=== PATIENT | female | born 1985 | race Caucasian/White ===

== ENCOUNTER 2017-06-14 11:34 | Emergency (ER) | payer MEDICAID ==
--- NOTE | 2017-06-14 12:11 | ED Physician Chart ---
Chief Complaint/HPI - Patient Information Date Seen:: 06/14/17 Time Seen:: 12:00 Chief Complaint:: vomiting History of Present Illness:: Patient developed vomiting this morning. She has vomited 4 times. No diarrhea no fever she has left upper quadrant and right upper quadrant pain. The last one year patient has had a left upper quadrant bulge which often occurs when she stands up and leans forward. This left upper quadrant bulge is not worse today than usual. Allergies:: Allergies Allergy/AdvReac Type Severity Reaction Status Date / Time sulfamethoxazole Allergy Verified 06/14/17 11:40 [From Bactrim] trimethoprim [From Bactrim] Allergy Verified 06/14/17 11:40 motrin Allergy Unknown Uncoded 08/18/12 13:01 Vitals:: Vital Signs - 8 hr 06/14/17 11:41 Temp 97.6 F HR 80 RR 16 BP 121/80 O2 Sat % 99 Historian:: Patient Review:: Nurse's Note Reviewed Review of Systems - Review of Systems General/Constitutional: No fever, No chills Skin: No skin lesions Head: No headache Eyes: No loss of vision ENT: No earache Neck: No neck pain Cardio Vascular: No chest pain, No palpitations Pulmonary: No SOB GI: Nausea, Vomiting, Pain G/U: No dysuria, No hematuria, No nacturia Musculoskeletal: No bone or joint pain, No back pain Endocrine: No polyuria, No polydipsia Psychiatric: No prior psych history Hematopoietic: No bruising Allergic/Immuno: No urticaria Neurological: No syncope Labs/Radiology/EKG Results - Lab Results Results: Laboratory Results - last 24 hr 06/14/17 06/14/17 06/14/17 12:00 12:00 12:18 WBC 8.8 RBC 5.19 H Hgb 13.7 Hct 41.5 MCV 80.0 L MCH 26.4 L MCHC Differential 33.0 RDW 12.8 Plt Count 380 MPV 7.5 Neutrophils % 45.5 Lymphocytes % 47.0 Monocytes % 6.0 Eosinophils % 1.0 Basophils % 0.5 Sodium Potassium Chloride Carbon Dioxide Anion Gap BUN Creatinine Est GFR ( Amer) Est GFR (Non-Af Amer) BUN/Creatinine Ratio Glucose Calcium Magnesium Lipase Urine Source [place] Urine Color YELLOW Urine Clarity CL Urine pH 7.0 Ur Specific [place] 1.020 Urine Protein NEGATIVE Urine Glucose (UA) NEGATIVE Urine Ketones NEGATIVE Urine Blood NEGATIVE Urine Nitrate NEGATIVE Urine Bilirubin NEGATIVE Urine Urobilinogen 0.2 Ur Leukocyte Esterase NEGATIVE Urine RBC NONE SEEN Urine WBC NONE SEEN Ur Epithelial Cells FEW Amorphous Sediment FEW PHOSPHATES Urine Bacteria OCCASIONAL Urine Test NEGATIVE 06/14/17 12:18 WBC RBC Hgb Hct MCV MCH MCHC Differential RDW Plt Count MPV Neutrophils % Lymphocytes % Monocytes % Eosinophils % Basophils % Sodium 135 L Potassium 4.0 Chloride 106 Carbon Dioxide 23.9 Anion Gap 9.1 BUN 12 Creatinine 0.8 Est GFR ( Amer) > 60.0 Est GFR (Non-Af Amer) > 60.0 BUN/Creatinine Ratio 15.0 Glucose 111 H Calcium 10.0 Magnesium 2.1 Lipase 16 Urine Source Urine Color Urine Clarity Urine pH Ur Specific [place] Urine Protein Urine Glucose (UA) Urine Ketones Urine Blood Urine Nitrate Urine Bilirubin Urine Urobilinogen Ur Leukocyte Esterase Urine RBC Urine WBC Ur Epithelial Cells Amorphous Sediment Urine Bacteria Urine Test Assessment - Assessment General Assessment: At 1400 patient felt better. I had patient stand and lean. forward and no ventral hernia was palpable and patient agreed it was not sticking out when reexamined. Told her she should follow-up with a general surgeon for evaluation of a possible ventral hernia ED Septic Shock - . Is Septic Shock (SBP<90, OR Lactate>4 mmol\L) present?: No - <6hrs of presentation: Vital Signs: Vital Signs - 8 hr 06/14/17 11:41 Temp 97.6 F HR 80 RR 16 BP 121/80 O2 Sat % 99 Reassessment (Disposition) - Reassessment Reassessment:: Patient told to drink a lot of half Gatorade half water and then bananas, get back to regular diet as soon as possible, and when better drink extra orange juice. Reassessment Condition:: Improved - Diagnosis Diagnosis:: Acute viral syndrome with vomiting - Aftercare/Follow up Instructions Aftercare/Follow-Up Instructions:: Refer to Discharge Instructions Medication Prescribed:: Prescription for Zofran 4 mg oral dissolving tablet #6 to take one every 4-6 hours as necessary for nausea and vomiting - Patient Disposition Discharge/Transfer:: Home Condition at Disposition:: Stable, Improved
[2017-06-14] MEDS ORDERED: Sodium Chloride 0.9% 1,000 ML IV ONE (12:13)
[2017-06-14 12:29] LABS: % BASOPHILS 0.5 % (0.0-2.0); % NEUTROPHILS 45.5 % (40.0-80.0); HEMATOCRIT 41.5 % (35.0-45.0); HEMOGLOBIN 13.7 gm/dL (11.7-15.5); MEAN CORPUSCULAR HEMOGLOBIN 26.4 pg (27.0-31.0); MEAN PLATELET VOLUME 7.5 fl; PLATELET COUNT 380 Th/cmm (150-400); RED BLOOD COUNT 5.19 Mil/cmm (3.80-5.10); RED CELL DISTRIBUTION WIDTH 12.8 % (11.5-20.0); WHITE BLOOD COUNT 8.8 Th/cmm (4.8-10.8)
[2017-06-14 12:57] LABS: ANION GAP 9.1 (7.0-16.0); BUN - UREA NITROGEN 12 mg/dL (7-25); CARBON DIOXIDE 23.9 mEq/L (21.0-31.0); CHLORIDE 106 mEq/L (98-107); CREATININE - SERUM 0.8 mg/dL (0.6-1.2); GLUCOSE 111 mg/dL (70-105); LIPASE 16 U/L (11-82); MAGNESIUM 2.1 mg/dL (1.9-2.7); SODIUM SERUM 135 mEq/L (136-145)
[2017-06-14 13:01] LABS: URINE BILIRUBIN NEGATIVE (NEGATIVE); URINE COLOR YELLOW; URINE GLUCOSE (UA) NEGATIVE (NEGATIVE); URINE KETONE NEGATIVE (NEGATIVE)
[2017-06-14 13:02] LABS: URINE BLOOD NEGATIVE (NEGATIVE); URINE PROTEIN NEGATIVE (NEGATIVE); URINE UROBILINOGEN 0.2 E.U./dL (0.2 - 1.0)
[2017-06-14 13:04] LABS: URINE BACTERIA OCCASIONAL /hpf (NONE SEEN); URINE EPITHELIAL CELLS FEW /lpf (FEW); URINE RBC NONE SEEN /hpf (0-5); URINE WBC NONE SEEN /hpf (0-5)
[2017-06-14 13:05] LABS: URINE AMORPHOUS SEDIMENT FEW PHOSPHATES (NONE SEEN)
== END 2017-06-14 14:20 | disposition home or self-care (01) ==
LOC: ER 11:34
DX: B34.9 Viral infection, unspecified (principal)
CPT/HCPCS: 99284; 96374; 36415; 85025; 81001; 81025; 83690; 83735; 80048; J2405; J7030; Z7502

== ENCOUNTER 2018-08-20 17:10 | Inpatient (IN) | payer MEDICAID ==
[2018-08-20] MEDS ORDERED: Sodium Chloride 0.9% 1,000 ML IV ONE (17:14)
--- NOTE | 2018-08-20 17:15 | ED Physician Chart ---
ED Chief Complaint/HPI - Patient Information Date Seen:: 08/20/18 Time Seen:: 17:00 Chief Complaint:: Chest Pain History of Present Illness:: onset x 8 hours of intermittent, sharp, MS type right chest pain; pt admits to S /T, cough, fever, and congestion x 2 days; pt started on Amoxicillin today; pt denies trauma, LOC, ALOC, AMS, H/As, E/As, neck pain, SOB, Abd. Pain, A/N/V/D/C , chills, or urinary s/s Allergies:: Allergies Allergy/AdvReac Type Severity Reaction Status Date / Time sulfamethoxazole Allergy Verified 06/14/17 11:40 [From Bactrim] trimethoprim [From Bactrim] Allergy Verified 06/14/17 11:40 motrin Allergy Unknown Uncoded 08/18/12 13:01 Historian:: Patient Review:: Nurse's Note Reviewed <Marco Hernandez - Last Filed: 08/20/18 18:04> - Patient Information Allergies:: Allergies Allergy/AdvReac Type Severity Reaction Status Date / Time sulfamethoxazole Allergy Verified 06/14/17 11:40 [From Bactrim] trimethoprim [From Bactrim] Allergy Verified 06/14/17 11:40 motrin Allergy Unknown Uncoded 08/18/12 13:01 Vitals:: Vital Signs - 8 hr 08/20/18 08/20/18 17:41 18:22 Temp 98.4 F 98 F HR 85 80 RR 21 12 BP 125/76 117/69 O2 Sat % 99 100 <Filipe Walden - Last Filed: 08/20/18 20:42> ED Review of Systems - Review of Systems General/Constitutional: Fever, No chills, No weight loss, No weakness, No diaphoresis, No edema, No loss of appetite Skin: No skin lesions, No rash, No bruising Head: No headache, No light-headedness Eyes: No loss of vision, No pain, No diplopia ENT: No earache, Nasal drainage, Sore throat, No tinnitus Neck: No neck pain, No swelling, No thyromegaly, No stiffness, No mass noted Cardio Vascular: Chest pain, No palpitations, No PND, No orthopnea, No edema Pulmonary: No SOB, No cough, No sputum, No wheezing GI: No nausea, No vomiting, No diarrhea, No pain, No melena, No hematochezia, No constipation, No hematemesis G/U: No dysuria, No frequency, No hematuria Cherry Picker Operator: No vaginal discharge, No abnormal vaginal bleed, No contraction Musculoskeletal: No bone or joint pain, No back pain, No muscle pain Endocrine: No polyuria, No polydipsia Psychiatric: No prior psych history, No depression, No anxiety, No suicidal ideation, No homicidal ideation, No auditory hallucination, No visual hallucination Hematopoietic: No bruising, No lymphadenopathy Allergic/Immuno: No urticaria, No angioedema Neurological: No syncope, No focal symptoms, No weakness, No paresthesia, No headache, No seizure, No dizziness, No confusion, No vertigo <Marco Hernandez [facility] Filed: 08/20/18 18:04> ED Past Medical History - Past Medical History Obtainable: Yes Past Medical History: No significant medical hx Family History: HTN Social History: Non Smoker, No Alcohol, No Drug Use, Single Surgical History: None Psychiatricy History: None Medication: Reviewed <Marco Hernandez Filed: 08/20/18 18:04> Family Medical History - Family Member Mother Ethnicity: Living Status: Still Living Hx Family Cancer: No Hx Family Coronary Artery Disease: No Hx Family Congestive Heart Failure: No Hx Family Hypertension: No Hx Family Stroke: No Hx Family Diabetes: No Hx Family Seizures: No Hx Family Dementia: No Hx Family AIDS: No Hx Family HIV: No Hx Family COPD: No Hx Family Hepatitis: No Hx Family Psychiatric Problems: No Hx Family Tuberculosis: No <Marco Hernandez [facility] Filed: 08/20/18 18:04> ED Physical Exam - Physical Examination General/Constitutional: Awake, Well-developed, well-nourished, Alert, No distress, GCS 15, Non-toxic appearing, Ambulatory Head: Atraumatic Eyes: Lids, conjuctiva normal, PERRL, EOMI Skin: Nl inspection, No rash, No skin lesions, No ecchymosis, Well hydrated, No lymphadenopathy ENMT: External ears, nose nl, TM canals nl, Nasal exam nl, Lips, teeth, gums nl , Tonsils nl Other ENMT comments:: Pharynx: Injected Neck: Nontender, Full ROM w/o pain, No JVD, No nuchal rigidity, No bruit, No mass, No stridor Respiratory: Nl effort/Exclusion, Clear to Auscultation, No Wheeze/Rhonchi/Rales Cardio Vascular: RRR, No murmur, gallop, rubs, NL S1 S2, Carotid/Femoral/Distal pulses equal bilaterally GI: No tenderness/rebounding/guarding, No organomegaly, No hernia, Normal BS's, Nondistended, No mass/bruits, No McBurney tenderness : No CVA tenderness Extremities: No tenderness or effusion, Full ROM, normal strength in all extremities, No edema, Normal digits & nails Neuro/Psych: Alert/oriented, DTR's symmetric, Normal sensory exam, Normal motor strength, Judgement/insight normal, Mood normal, Normal gait, No focal deficits Misc: Normal back, No paraspinal tenderness <Marco Hernandez - Last Filed: 08/20/18 18:04> ED Labs/Radiology/EKG Results - Lab Results Comments:: Reviewed - EKG Interpretations EKG Time:: 17:18 Rate & Rhythm: 82; NSR Comments:: WNL <Marco Hernandez - Last Filed: 08/20/18 18:04> - Lab Results Results: Laboratory Tests 08/20/18 08/20/18 08/20/18 17:16 17:27 17:27 WBC 10.3 RBC 5.14 H Hgb 13.4 Hct 41.3 MCV 80.3 L MCH 26.0 L MCHC Differential 32.4 RDW 13.0 Plt Count 448 H MPV 6.9 Neutrophils % 56.0 Lymphocytes % 37.0 Monocytes % 4.0 Eosinophils % 2.2 Basophils % 0.8 PT 8.9 L INR 0.85 D-Dimer 3100 H Sodium 137 Potassium 2.3 L* Chloride 106 Carbon Dioxide 20.9 L Anion Gap 12.4 BUN 9 Creatinine 0.6 Est GFR ( Amer) > 60.0 Est GFR (Non-Af Amer) > 60.0 BUN/Creatinine Ratio 15.0 Glucose 91 Calcium 9.5 Total Bilirubin 0.3 AST 12 L ALT 13 Alkaline Phosphatase 62 Creatine Kinase 39 Troponin I B-Natriuretic Peptide Total Protein 7.7 Albumin 3.9 Globulin 3.8 Albumin/Globulin Ratio 1.0 Triglycerides 95 Cholesterol 169 LDL Cholesterol Direct 94 HDL Cholesterol 63 Amylase 52 Lipase 13 Serum , Qual 08/20/18 08/20/18 08/20/18 17:27 17:27 17:27 WBC RBC Hgb Hct MCV MCH MCHC Differential RDW Plt Count MPV Neutrophils % Lymphocytes % Monocytes % Eosinophils % Basophils % PT INR D-Dimer Sodium Potassium Chloride Carbon Dioxide Anion Gap BUN Creatinine Est GFR ( Amer) Est GFR (Non-Af Amer) BUN/Creatinine Ratio Glucose Calcium Total Bilirubin AST ALT Alkaline Phosphatase Creatine Kinase Troponin I < 0.01 L B-Natriuretic Peptide 60.9 Total Protein Albumin Globulin Albumin/Globulin Ratio Triglycerides Cholesterol LDL Cholesterol Direct HDL Cholesterol Amylase Lipase Serum , Qual NEGATIVE - Radiology Results Results: CTA chest: no evidence of PE <Filipe Walden - Last Filed: 08/20/18 20:42> ED Septic Shock - . Is Septic Shock (SBP<90, OR Lactate>4 mmol\L) present?: No <Marco Hernandez - Last Filed: 08/20/18 18:04> - . Is Septic Shock (SBP<90, OR Lactate>4 mmol\L) present?: No - <6hrs of presentation: Vital Signs: Vital Signs - 8 hr 08/20/18 08/20/18 17:41 18:22 Temp 98.4 F 98 F HR 85 80 RR 21 12 BP 125/76 117/69 O2 Sat % 99 100 <Filipe Walden - Last Filed: 08/20/18 20:42> ED Reassessment (Disposition) - Reassessment Reassessment Condition:: Improved - Diagnosis Diagnosis:: Chest Pain; Costochondritis; Pharyngitis; Hypokalemia <Marco Hernandez - Last Filed: 08/20/18 18:04> - Patient Disposition Discharge/Transfer:: Acute Care w/in this hosp Admitting Medical Physician:: Alexander Haji <Filipe Walden - Last Filed: 08/20/18 20:42>
[2018-08-20 17:38] LABS: % BASOPHILS 0.8 % (0.0-2.0); % EOSINOPHILS 2.2 % (0.0-5.0); BASOPHILE ABSOLUTE 0.1 Th/cumm (0-0.2); EOSINOPHILE ABSOLUTE 0.2 Th/cmm (0.1-0.4); HEMATOCRIT 41.3 % (41.0-60); HEMOGLOBIN 13.4 gm/dL (12-16); LYMPHOCYTE ABSOLUTE 3.8 Th/cmm (1.5-3.0); MEAN CELL VOLUME 80.3 fl (81-100); MEAN CORPUSCULAR HGB CONC 32.4 pg (28.0-36.0); MEAN PLATELET VOLUME 6.9 fl; MONOCYTE ABSOLUTE 0.4 Th/cmm (0.3-1.0); NEUTROPHILE ABSOLUTE 5.8 Th/cmm (1.8-8.0); PLATELET COUNT 448 Th/cmm (150-400); RED BLOOD COUNT 5.14 Mil/cmm (3.80-5.10); WHITE BLOOD COUNT 10.3 Th/cmm (4.8-10.8)
[2018-08-20 17:44] LABS: INR 0.85 (0.5-1.4); PROTHROMBIN TIME (TEST) 8.9 SECONDS (9.5-11.5)
[2018-08-20 17:52] LABS: ALBUMIN 3.9 gm/dL (3.7-5.3); ALKALINE PHOSPHATASE 62 U/L (34-104); AMYLASE SERUM 52 U/L (29-103); ANION GAP 12.4 (7.0-16.0); BILIRUBIN,TOTAL 0.3 mg/dL (0.3-1.0); BUN - UREA NITROGEN 9 mg/dL (7-25); CALCIUM SERUM 9.5 mg/dL (8.6-10.3); CARBON DIOXIDE 20.9 mEq/L (21.0-31.0); CHLORIDE 106 mEq/L (98-107); CHOLESTEROL 169 mg/dL (<200); CREATININE - SERUM 0.6 mg/dL (0.6-1.2); CREATININE KINASE 39 U/L (30-223); GFR AFRICAN-AMERICAN > 60.0 ml/min (>90); GFR NON AFRICAN-AMERICAN > 60.0 ml/min; GLUCOSE 91 mg/dL (70-105); HDL -HIGH DENSITY LIPOPROTEIN 63 mg/dL (23-92); LIPASE 13 U/L (11-82); SGOT 12 U/L (13-39); SGPT/ALT 13 U/L (7-52); SODIUM SERUM 137 mEq/L (136-145); TOTAL PROTEIN,SERUM 7.7 gm/dL (6.0-8.3); TRIGLYCERIDES 95 mg/dL (<150)
[2018-08-20 17:53] LABS: POTASSIUM SERUM 2.3 mEq/L (3.5-5.1)
[2018-08-20 18:03] LABS: DDIMER QUANT 3100 ng/mL (100-400)
[2018-08-20] MEDS ORDERED: Potassium Chloride 20 mEq ER Tab PO ONE ×2 (18:03→18:17)
[2018-08-20] MEDS ORDERED: IOHEXOL 350mgI/mL 100mL Bottle IVP ONE (19:16)
[2018-08-21 04:42] VITALS: BP 110/64
[2018-08-21 06:51] LABS: % BASOPHILS 0.1 % (0.0-2.0); % LYMPHOCYTES 43.6 % (20.0-50.0); % MONOCYTES 7.5 % (2.0-10.0); % NEUTROPHILS 45.8 % (40.0-80.0); EOSINOPHILE ABSOLUTE 0.2 Th/cmm (0.1-0.4); HEMOGLOBIN 12.3 gm/dL (12-16); LYMPHOCYTE ABSOLUTE 3.1 Th/cmm (1.5-3.0); MEAN CELL VOLUME 79.7 fl (81-100); MEAN CORPUSCULAR HEMOGLOBIN 26.6 pg (27.0-31.0); MEAN CORPUSCULAR HGB CONC 33.3 pg (28.0-36.0); MONOCYTE ABSOLUTE 0.5 Th/cmm (0.3-1.0); NEUTROPHILE ABSOLUTE 3.3 Th/cmm (1.8-8.0); PLATELET COUNT 405 Th/cmm (150-400); RED BLOOD COUNT 4.64 Mil/cmm (3.80-5.10); RED CELL DISTRIBUTION WIDTH 12.8 % (11.5-20.0); WHITE BLOOD COUNT 7.1 Th/cmm (4.8-10.8)
[2018-08-21] MEDS ORDERED: ETONOGESTREL 68 MG SQ SCH (08:15)
--- NOTE | 2018-08-21 09:02 | Diagnostic Imaging Report ---
CT Chest PE study Indication: Chest pain and elevated d-dimer Comparison: None, Technique: Axial images were obtained from the base of the neck to the upper abdomen, following administration of IV contrast, PE protocol. Multiplanar reconstructions were made. total DLP: 375, [id number] FINDINGS: No evidence of mediastinal adenopathy. Borderline prominent heart is noted. Assessment of the heart and proximal great vessels is limited due to pulsation artifact. No evidence of a pericardial effusion. No evidence of any aortic aneurysm. Assessment of the pulmonary arterial vasculature demonstrates no evidence of a pulmonary embolus. Evaluation of the lungs demonstrates minimal hypoventilatory atelectatic changes of the lungs. No focal consolidation or effusions. There is 3 mm nodular opacity the left lower lobe (image 52, series 6). The upper abdomen demonstrates no acute abnormalities. Degenerative changes of the spine are noted. IMPRESSION: No evidence of pulmonary embolus. No focal consolidation or pleural effusions. No evidence of an aortic aneurysm. Faint 3 mm nodule of the left lower lobe nonspecific and may be due to infectious or inflammatory process. Please correlate with old exams available. Consider follow surveillance if indicated.
[2018-08-21] MEDS: Calcium Carb/Vit D 500 mg/200 U Tab PO SCH ×2 (09:14→17:55)
--- NOTE | 2018-08-21 09:33 | History and Physical ---
History of Present Illness - HPI Chief Complaint: Hypokalemia HPI: 32 y/o female who presents to [facility] for sudden onset of intermittent, sharp, MS type right chest pain. Patient was seen by her PMD and prescribed amoxicillin for coughing, fever, congestion x 2 days. Was started on Amoxicillin. pt denies trauma, LOC, ALOC, AMS, H/As, E/As, neck pain, SOB, Abd. Pain, A/N/V/D/C, chills, or urinary s/s Initial labwork revealed the following ... WBC 10.3 H/h 13.4/41.3 platelets 448K Na 137 K+ 2.3 Bun/Cr 9/0.6 glu 91 amylase 52 lipase 13 serum HCG negative troponin I < 0.[address] Chest,Abd/Pelvis ... was negative. Patient was subsequently admitted for further evaluation and treatment. Vital Signs: Last Vital Signs Temp 96.9 F 08/21/18 08:00 Pulse 74 08/21/18 08:00 Resp 18 08/21/18 08:00 BP 100/60 08/21/18 08:00 Pulse Ox 100 08/21/18 08:00 Past Medical History Cardiovascular: Report: No Pertinent Hx Pulmonary: Report: No Pertinent Hx GRAB DRIVER: Report: No Pertinent Hx GI: Report: No Pertinent Hx Psych: Report: No Pertinent Hx Musculoskeletal: Report: No Pertinent Hx Rheumatologic: Report: No pertinent Hx Infectious Disease: Report: No Pertinent Hx Renal/: Report: No Pertinent Hx Endocrine: Report: No Pertinent Hx Dermatology: Report: No Pertinent Hx - Past Surgical History Past Surgical History: No pertinent Hx Family Medical History - Family Member Mother History Unknown: Yes Ethnicity: Living Status: Still Living Hx Family Cancer: No Hx Family Coronary Artery Disease: Yes Hx Family Congestive Heart Failure: No Hx Family Hypertension: Yes Hx Family Stroke: No Hx Family Diabetes: Yes Hx Family Seizures: No Hx Family Dementia: No Hx Family AIDS: No Hx Family HIV: No Hx Family COPD: No Hx Family Hepatitis: No Hx Family Psychiatric Problems: No Hx Family Tuberculosis: No Social History Smoke: No Alcohol: None Drugs: None Lives: Alone - Medications Home Medications: Home Medication Medication Instructions Recorded Type Amoxicillin [Amoxil] 500 mg PO TID 08/20/18 History Calcium Carbonate/Vitamin D3 1 tab PO BID 08/20/18 History [Calcium 600-Vit D3 400 Tablet] Etonogestrel [Nexplanon] 68 mg SQ X1 08/20/18 History Ondansetron HCl [Zofran*] 4 mg PO Q8H PRN 08/20/18 History - Allergies Allergies/Adverse Reactions: Allergies Allergy/AdvReac Type Severity Reaction Status Date / Time sulfamethoxazole Allergy Verified 06/14/17 11:40 [From Bactrim] trimethoprim [From Bactrim] Allergy Verified 06/14/17 11:40 motrin Allergy Unknown Uncoded 08/18/12 13:01 Review of Systems - Review of Systems Constitutional: Report: No Significant Eyes: Report: No Significant ENT: Report: No Significant Respiratory: Report: No Significant Cardiovascular: Report: No Significant Gastrointestinal: Report: Nausea, Vomiting, Abdominal Pain. Denies: Diarrhea Genitourinary: Report: No Significant Musculoskeletal: Report: No Significant Skin: Report: No Significant Neurological: Report: No Significant Physical Exam - Physical Exam HEENT: Report: Ears Nose Throat within normal limits, Pharnyx within normal limits Neck: Report: Within normal limits Cardiovascular Systems: Report: +s1/s2 noted, Regular, Rate and Rhythm Respiratory: Report: Breath Sounds are within normal limits Abdomen: Report: Non-tender to palpation, Tender to palpation Back: Report: Inspection of back is within normal limits. Extremities: Report: Non-tender to palpation. Skin: Report: Color of skin is within normal limits - Lab Results All Lab Results last 24 hours: Laboratory Results - last 24 hr 08/20/18 08/20/18 08/20/18 17:16 17:27 17:27 WBC 10.3 RBC 5.14 H Hgb 13.4 Hct 41.3 MCV 80.3 L MCH 26.0 L MCHC Differential 32.4 RDW 13.0 Plt Count 448 H MPV 6.9 Neutrophils % 56.0 Lymphocytes % 37.0 Monocytes % 4.0 Eosinophils % 2.2 Basophils % 0.8 PT 8.9 L INR 0.85 D-Dimer 3100 H Sodium 137 Potassium 2.3 L* Chloride 106 Carbon Dioxide 20.9 L Anion Gap 12.4 BUN 9 Creatinine 0.6 Est GFR ( Amer) > 60.0 Est GFR (Non-Af Amer) > 60.0 BUN/Creatinine Ratio 15.0 Glucose 91 Calcium 9.5 Total Bilirubin 0.3 AST 12 L ALT 13 Alkaline Phosphatase 62 Creatine Kinase 39 Troponin I B-Natriuretic Peptide Total Protein 7.7 Albumin 3.9 Globulin 3.8 Albumin/Globulin Ratio 1.0 Triglycerides 95 Cholesterol 169 LDL Cholesterol Direct 94 HDL Cholesterol 63 Amylase 52 Lipase 13 Serum , Qual 08/20/18 08/20/18 08/20/18 17:27 17:27 17:27 WBC RBC Hgb Hct MCV MCH MCHC Differential RDW Plt Count MPV Neutrophils % Lymphocytes % Monocytes % Eosinophils % Basophils % PT INR D-Dimer Sodium Potassium Chloride Carbon Dioxide Anion Gap BUN Creatinine Est GFR ( Amer) Est GFR (Non-Af Amer) BUN/Creatinine Ratio Glucose Calcium Total Bilirubin AST ALT Alkaline Phosphatase Creatine Kinase Troponin I < 0.01 L B-Natriuretic Peptide 60.9 Total Protein Albumin Globulin Albumin/Globulin Ratio Triglycerides Cholesterol LDL Cholesterol Direct HDL Cholesterol Amylase Lipase Serum , Qual NEGATIVE 08/21/18 08/21/18 06:30 06:30 WBC 7.1 D RBC 4.64 Hgb 12.3 Hct 37.0 L MCV 79.7 L MCH 26.6 L MCHC Differential 33.3 RDW 12.8 Plt Count 405 H MPV 7.0 Neutrophils % 45.8 Lymphocytes % 43.6 Monocytes % 7.5 Eosinophils % 3.0 Basophils % 0.1 PT INR D-Dimer Sodium Potassium Chloride Carbon Dioxide Anion Gap BUN Creatinine Est GFR ( Amer) Est GFR (Non-Af Amer) BUN/Creatinine Ratio Glucose Calcium Total Bilirubin AST ALT Alkaline Phosphatase Creatine Kinase Troponin I < 0.01 L B-Natriuretic Peptide Total Protein Albumin Globulin Albumin/Globulin Ratio Triglycerides Cholesterol LDL Cholesterol Direct HDL Cholesterol Amylase Lipase Serum , Qual - Assessment Assessment: Current Active Problems Problem Status Onset CHEST PAIN WITH THORACIC RADIATION Acute abdominal pain chest pain sever hypokalemia dehydration. - Plan Plan: see orders
[2018-08-21] MEDS ORDERED: Potassium Chloride 20 mEq ER Tab PO ONE (10:00)
[2018-08-21 10:27] LABS: AMPHETAMINE URINE NEGATIVE (NEGATIVE); BARBITURATES URINE NEGATIVE (NEGATIVE); BENZODIAZEPINES QUAL URINE NEGATIVE (NEGATIVE); CANNABINOID THC NEGATIVE (NEGATIVE); COCAINE METABOLITE QUAL URINE NEGATIVE (NEGATIVE); METHADONE URINE NEGATIVE (NEGATIVE); METHAMPHETAMINES QUAL URINE NEGATIVE (NEGATIVE); OPIATES (MORPHINE) QUAL. URINE NEGATIVE (NEGATIVE); PHENCYCLIDINE (PCP) URINE NEGATIVE (NEGATIVE); TRICYCLICS (TCA) QUAL. URINE NEGATIVE (NEGATIVE)
[2018-08-21] MEDS: KCL 20mEq/100mL Premix 20 MEQ/100 ML PIGGYBACK IV SCH ×2 (10:48→15:33)
[2018-08-21] MEDS ORDERED: Azithromycin 250 MG in Sodium Chloride 0.9% 250 ML IV SCH (12:00)
[2018-08-21] MEDS ORDERED: NS 0.9% IV SCH ×2 (12:15→17:00)
[2018-08-21] MEDS ORDERED: AZITHROMYCIN IV SCH ×2 (12:15→17:00)
[2018-08-21 14:15] LABS: ANION GAP 19.3 (7.0-16.0); BUN - UREA NITROGEN 6 mg/dL (7-25); CALCIUM SERUM 9.2 mg/dL (8.6-10.3); CHLORIDE 104 mEq/L (98-107); CREATININE - SERUM 0.7 mg/dL (0.6-1.2); GFR AFRICAN-AMERICAN > 60.0 ml/min (>90); GFR NON AFRICAN-AMERICAN > 60.0 ml/min; GLUCOSE 91 mg/dL (70-105); SODIUM SERUM 138 mEq/L (136-145)
[2018-08-21 14:16] LABS: ALB/GLOB RATIO 0.7 (1.0-1.8); ALBUMIN 2.9 gm/dL (3.7-5.3); ALKALINE PHOSPHATASE 66 U/L (34-104); BILIRUBIN,TOTAL 0.3 mg/dL (0.3-1.0); SGOT 14 U/L (13-39); SGPT/ALT 21 U/L (7-52); TOTAL PROTEIN,SERUM 7.2 gm/dL (6.0-8.3)
[2018-08-21 14:19] LABS: POTASSIUM SERUM 4.3 mEq/L (3.5-5.1)
--- NOTE | 2018-08-22 02:08 | Consultation ---
DATE OF CONSULTATION: 08/21/[address] Alexander Haji. HISTORY AND PHYSICAL: This is a 32-year-old female patient who has a sore throat. Following this, the patient came to the Emergency Room, the patient was also complaining of chest pain on the right, second and third intercostal space; increased with deep breathing, radiating to the back. The patient's troponin level normal. The patient had low potassium 2.3 and the patient is admitted. PAST MEDICAL HISTORY: Unremarkable. FAMILY HISTORY: Unremarkable. SOCIAL HISTORY: No history of smoking, alcohol abuse. ALLERGIES: None. PHYSICAL EXAMINATION: VITAL SIGNS: Blood pressure 130/80, pulse 70, respirations 20. HEAD: Normocephalic. No lumps or bumps. EYES: Pupils equal, reactive to light. Fundi show AV nicking, sclerae white, conjunctivae pink. NECK: Carotid 2+. Normal upstroke. JVD flat. Thyroid not palpable. Lymph nodes not palpable. CHEST: Shows increased AP diameter. No kyphosis, scoliosis. LUNGS: Bilateral bronchovesicular breath sounds. HEART: PMI fifth intercostal space with lateral to midclavicular line. S1, S2. No S3, S4, soft systolic murmur. ABDOMEN: Soft. Liver, spleen not palpable. No organomegaly. Bowel sounds active. NEUROLOGIC: Unremarkable. EXTREMITIES: Peripheral pulses 2+. No pedal edema. The patient has tenderness in the right second and third costochondral junction. CLINICAL IMPRESSION: Acute costochondritis. PLAN: The patient's troponin level normal. For hypokalemia, the patient to be given potassium supplement. We will get echocardiogram and monitor the patient on telemetry bed. JOB# [id number]
[2018-08-22 05:47] LABS: ANION GAP 14.4 (7.0-16.0); BUN - UREA NITROGEN 9 mg/dL (7-25); CALCIUM SERUM 9.8 mg/dL (8.6-10.3); CARBON DIOXIDE 21.7 mEq/L (21.0-31.0); CHLORIDE 105 mEq/L (98-107); CREATININE - SERUM 0.7 mg/dL (0.6-1.2); GFR AFRICAN-AMERICAN > 60.0 ml/min (>90); GFR NON AFRICAN-AMERICAN > 60.0 ml/min; GLUCOSE 128 mg/dL (70-105); POTASSIUM SERUM 4.1 mEq/L (3.5-5.1); SODIUM SERUM 137 mEq/L (136-145)
--- NOTE | 2018-08-22 08:30 | Diagnostic Imaging Report ---
Abdominal ultrasound HISTORY: Pain The liver appears enlarged. There is an increase in hepatic parenchymal echogenicity. The finding may be associated with fatty infiltration and should be correlated with liver function tests. No focal lesions. The gallbladder appears normal. No calculi are seen. No biliary dilatation. The pancreas cannot be seen due to bowel gas. The kidneys appear normal bilaterally. No other retroperitoneal or intra-abdominal abnormalities. IMPRESSION: 1. Hepatomegaly along with parenchymal changes that may be associated with fatty infiltration. The findings should be correlated with liver function tests. 2. No other significant abnormalities
--- NOTE | 2018-08-22 08:49 | General Progress Note ---
Subjective - Review of Systems Service Date: 08/22/18 Subjective: Patient doing better. no further nausea or vomiting. US abd done yesterday. K+ level now corrected. For ECHO. Objective - Results Result Diagrams: 08/21/18 06:30 08/22/18 04:40 Recent Labs: Laboratory Last Values WBC 7.1 Th/cmm (4.8-10.8) D 08/21/18 06:30 RBC 4.64 Mil/cmm (3.80-5.10) 08/21/18 06:30 Hgb 12.3 gm/dL (12-16) 08/21/18 06:30 Hct 37.0 % (41.0-60) L 08/21/18 06:30 MCV 79.7 fl (81-100) L 08/21/18 06:30 MCH 26.6 pg (27.0-31.0) L 08/21/18 06:30 MCHC Differential 33.3 pg (28.0-36.0) 08/21/18 06:30 RDW 12.8 % (11.5-20.0) 08/21/18 06:30 Plt Count 405 Th/cmm (150-400) H 08/21/18 06:30 MPV 7.0 fl 08/21/18 06:30 Neutrophils % 45.8 % (40.0-80.0) 08/21/18 06:30 Lymphocytes % 43.6 % (20.0-50.0) 08/21/18 06:30 Monocytes % 7.5 % (2.0-10.0) 08/21/18 06:30 Eosinophils % 3.0 % (0.0-5.0) 08/21/18 06:30 Basophils % 0.1 % (0.0-2.0) 08/21/18 06:30 PT 8.9 SECONDS (9.5-11.5) L 08/20/18 17:27 INR 0.85 (0.5-1.4) 08/20/18 17:27 D-Dimer 3100 ng/mL (100-400) H 08/20/18 17:16 Sodium 137 mEq/L (136-145) 08/22/18 04:40 Potassium 4.1 mEq/L (3.5-5.1) 08/22/18 04:40 Chloride 105 mEq/L (98-107) 08/22/18 04:40 Carbon Dioxide 21.7 mEq/L (21.0-31.0) 08/22/18 04:40 Anion Gap 14.4 (7.0-16.0) 08/22/18 04:40 BUN 9 mg/dL (7-25) 08/22/18 04:40 Creatinine 0.7 mg/dL (0.6-1.2) 08/22/18 04:40 Est GFR ( Amer) > 60.0 ml/min (>90) 08/22/18 04:40 Est GFR (Non-Af Amer) > 60.0 ml/min 08/22/18 04:40 BUN/Creatinine Ratio 12.9 08/22/18 04:40 Glucose 128 mg/dL (70-105) H 08/22/18 04:40 Calcium 9.8 mg/dL (8.6-10.3) 08/22/18 04:40 Magnesium 2.4 mg/dL (1.9-2.7) 08/21/18 06:30 Total Bilirubin 0.3 mg/dL (0.3-1.0) 08/21/18 06:30 AST 14 U/L (13-39) 08/21/18 06:30 ALT 21 U/L (7-52) 08/21/18 06:30 Alkaline Phosphatase 66 U/L (34-104) 08/21/18 06:30 Creatine Kinase 39 U/L (30-223) 08/20/18 17:16 Troponin I < 0.01 ng/mL (0.01-0.05) L 08/21/18 16:02 B-Natriuretic Peptide 60.9 pg/mL (5.0-100.0) 08/20/18 17:27 Total Protein 7.2 gm/dL (6.0-8.3) 08/21/18 06:30 Albumin 2.9 gm/dL (3.7-5.3) L 08/21/18 06:30 Globulin 4.3 gm/dL 08/21/18 06:30 Albumin/Globulin Ratio 0.7 (1.0-1.8) L 08/21/18 06:30 Triglycerides 95 mg/dL (<150) 08/20/18 17:16 Cholesterol 169 mg/dL (<200) 08/20/18 17:16 LDL Cholesterol Direct 94 mg/dL (75-193) 08/20/18 17:16 HDL Cholesterol 63 mg/dL (23-92) 08/20/18 17:16 Amylase 52 U/L (29-103) 08/20/18 17:16 Lipase 13 U/L (11-82) 08/20/18 17:16 Serum , Qual NEGATIVE (NEGATIVE) 08/20/18 17:27 Urine Opiates Screen NEGATIVE (NEGATIVE) 08/21/18 09:40 Urine Methadone Screen NEGATIVE (NEGATIVE) 08/21/18 09:40 Ur Barbiturates Screen NEGATIVE (NEGATIVE) 08/21/18 09:40 Ur Tricyclics Screen NEGATIVE (NEGATIVE) 08/21/18 09:40 Ur Phencyclidine Scrn NEGATIVE (NEGATIVE) 08/21/18 09:40 Amphetamines Screen NEGATIVE (NEGATIVE) 08/21/18 09:40 U Methamphetamines Scrn NEGATIVE (NEGATIVE) 08/21/18 09:40 U Benzodiazepines Scrn NEGATIVE (NEGATIVE) 08/21/18 09:40 U Cocaine Metab Screen NEGATIVE (NEGATIVE) 08/21/18 09:40 U Cannabinoids Screen NEGATIVE (NEGATIVE) 08/21/18 09:40 - Physical Exam Vitals and I&O: Vital Signs Temp 98.0 F 08/22/18 08:39 Pulse 86 08/22/18 08:39 Resp 17 08/22/18 08:39 BP 98/49 08/22/18 08:39 Pulse Ox 100 08/22/18 08:39 Intake & Output 08/21/18 08/22/18 08/22/18 18:59 06:59 18:59 Intake Total 1600 990 Balance 1600 990 Weight (lbs) 82.781 kg 82.01 kg Intake: Intake, IV Amount 100 250 Azithromycin 250 mg In 250 Sodium Chloride 0.9% 250 ml @ 250 mls/hr IV Q24H JESUS Rx#:[id number] KCL 20mEq/100mL Premix 20 100 meq In 100 ml @ 50 mls/ hr IV Q2H JESUS Rx#: [id number] Oral 1500 740 Other: # Voids 5 3 # Bowel Movements 1 0 Stool Characteristics Soft Formed Weight Source Bedscale Bedscale Active Medications: Current Medications Acetaminophen (Tylenol) 650 mg PO Q4H PRN PRN Reason: pain Stop: 10/20/18 03:56 Last Admin: 08/21/18 04:19 Dose: 650 mg Calcium/Vitamin D (Oscal W/Vitamin D) 1 tab PO BID JESUS Stop: 10/20/18 08:59 Last Admin: 08/21/18 17:55 Dose: 1 tab Potassium Chloride 10 meq/ (Sodium Chloride) 1,005 mls @ 50 mls/hr IV .Q20H6M JESUS Stop: 10/20/18 09:59 Last Admin: 08/21/18 10:54 Dose: 50 mls/hr Azithromycin 250 mg/ Sodium (Chloride) 250 mls @ 250 mls/hr IV Q24H JESUS Stop: 10/20/18 16:59 Last Infusion: 08/21/18 20:00 Dose: Infused Ibuprofen (Motrin) 800 mg PO BID PRN PRN Reason: pain Stop: 10/20/18 08:16 Last Admin: 08/22/18 03:01 Dose: 800 mg Ondansetron HCl (Zofran Odt) 4 mg SL Q8H PRN PRN Reason: Nausea / Vomiting General: Alert, Oriented x3, No acute distress HEENT: Atraumatic Neck: Supple Cardiovascular: Regular rate, Normal S1, Normal S2 Lungs: Clear to auscultation Abdomen: Bowel sounds Extremities: no Clubbing, no Cyanosis, no Edema Neurological: Normal gait, Normal speech - Procedures Procedures: Procedures Procedure Code Date APPLICATION OF SPLINT 93.54 04/21/95 INJECT/INFUSE NEC 99.29 08/18/12 OTH WOUND IRRIGATION 96.59 04/21/95 THER/PROPH/DIAG INJ SC/IM 05751 08/18/12 Assessment/Plan - Problem List Patient Problems: All Active Problems CHEST PAIN WITH THORACIC RADIATION (Acute) - Assessment Assessment: Current Active Problems Problem Status Onset CHEST PAIN WITH THORACIC RADIATION Acute abdominal pain ... resolved chest pain ... acs ruled out severe hypokalemia ... corrected dehydration ... improved. - Plan Plan: ok to be discharge if ok with Dr. Waldrop
[2018-08-22] MEDS: Calcium Carb/Vit D 500 mg/200 U Tab PO SCH (09:02)
--- NOTE | 2018-08-23 16:42 | Cardiology ---
08/21/2018 PROCEDURE: Echocardiogram. The patient of Dr. Haji. M-MODE ECHOCARDIOGRAM: Mitral valve, anterior leaflet of mitral valve shows normal excursion, EF velocity. Posterior leaflet of the mitral valve shows normal excursion. Left ventricular posterior wall showed normal thickness, excursion. Interventricular septum showed normal thickness, excursion. Ejection fraction 70%. Left atrium normal. Aortic root shows normal dimension, normal excursion of aortic leaflets. CONCLUSION: Normal M-mode echo, ejection fraction 70%. 2D ECHO: Long axis view showed normal sized left ventricle with normal wall motion, mitral valve shows normal excursion. Left atrium normal. Aortic root shows normal dimension, normal excursion of aortic leaflets. Short axis view of mitral valve normal. Short axis view of aortic valve normal. Apical four chamber view showed normal sized left ventricle, left atrium, right ventricle, right atrium, tricuspid and mitral valve. Ejection fraction 70%. CONCLUSION: Normal 2D echo, ejection fraction 70%. Doppler study shows mild mitral regurgitation, trace tricuspid regurgitation, right ventricular systolic pressure 27 mmHg. [facility]# [id number]
== END 2018-08-22 13:30 | disposition home or self-care (01) | DRG 203 ==
LOC: ER 17:10 → MSI 19:45 → TELE 08-21 10:04
PROVIDERS: ADMIT Family Medicine; ATTEND Family Medicine
DX: M94.0 Chondrocostal junction syndrome [Tietze] (principal); E86.0 Dehydration; E87.6 Hypokalemia; Z60.2 Problems related to living alone; J02.9 Acute pharyngitis, unspecified; Z88.8 Allergy status to other drugs, medicaments and biological substances; Z82.49 Family history of ischemic heart disease and other diseases of the circulatory system; Z83.3 Family history of diabetes mellitus; Z88.2 Allergy status to sulfonamides
CPT/HCPCS: 36415-UA; 71275-TC; 76700-TC; 80048-TC; 80053-TC; 80061-TC; 80307; 82150-TC; 82550-TC; 83690-TC; 83735-TC; 83880-TC; 84484-TC; 84703-TC; 85025-TC; 85379-TC; 85610-TC; 93005; 94760; J0456; J3480; J7030; J7070; Q9967; Z7610